=== PATIENT | male | born 1955 | race Caucasian/White ===

== ENCOUNTER → 2018-01-08 | Outpatient (CLI) | payer OTHER ==
--- NOTE | ~2018-01-08 | 2DMMODE ---
[facility] [place] [address] 2 D/M-MODE ECHOCARDIOGRAM Name: CLEMENT SPARROW Room #: REG [facility]#: [id number] Admission: 01/08/18 Attend Phys: Stoney Hendrix, Discharge: Date of : 57 Date of Service: 01/08/18 1709 Report #: [id number] THIS REPORT FOR: //name// ADDENDUM APPROVED REPORT Study performed: 01/08/2018 10:06:31 EXAM: Comprehensive 2D, Doppler, and color-flow Echocardiogram Patient Location: Out-Patient Room #: Echo lab 2 Status: routine BSA: 1.78 HR: 51 bpm BP: 122/78 mmHg Rhythm: NSR Other Information Study Quality: Good Indications Aortic Valve Disease Bicuspid Aortic valve. 2D Dimensions IVC: 24.00 mm Volumes Left Atrial Volume (Systole) LA ESV Index: 28.00 mL/m2 Tricuspid Valve PA Pressure: 35.00 mmHg Left Ventricle The left ventricle is normal size. There is normal LV segmental wall motion. There is normal left ventricular wall thickness. The left ventricular systolic function is normal. The left ventricular ejection fraction is within the normal range. LVEF is 55-60%. The left ventricular diastolic function is normal. Right Ventricle The right ventricle is normal size. The right ventricular systolic function is normal. [facility] [address] [place] [address] 2 D/M-MODE ECHOCARDIOGRAM Name: CLEMENT SPARROW Room #: REG [facility]#: [id number] Admission: 01/08/18 Attend Phys: Stoney Hendrix, Discharge: Date of : 57 Date of Service: 01/08/18 1709 Report #: [id number] The left atrium size is normal. The right atrium size is normal. Aortic Valve Aortic valve is bicuspid. Trace to mild aortic regurgitation. Moderate aortic stenosis. Mitral Valve The mitral valve is normal in structure. Trace to mild mitral regurgitation. No evidence of mitral valve stenosis. Tricuspid Valve The tricuspid valve is normal in structure. Trace tricuspid regurgitation. Estimated PAP 35 mmHg. Mild pulmonary hypertension. Pulmonic Valve The pulmonary valve is normal in structure. There is no pulmonic valvular regurgitation. Great Vessels The aortic root is normal in size. IVC is dilated and collapses >50% with inspiration. Pericardium There is no pericardial effusion. <Conclusion> The left ventricle is normal size. LVEF is 55-60%. The left ventricular diastolic function is normal. The right ventricle is normal size. The left atrium size is normal. Aortic valve is bicuspid. Trace to mild aortic regurgitation. Moderate aortic stenosis.1.0 cm 2 Trace to mild mitral regurgitation. Trace tricuspid regurgitation. Estimated PAP 35 mmHg. Mild pulmonary hypertension. The aortic root is normal in size. There is no pericardial effusion. <ELECTRONICALLY SIGNED> By: Stoney Hendrix MD, FACC 01/08/181708 08 08 Stoney Hendrix MD, FACC /INF
== END ==
LOC: CV 09:29
DX: I27.20 Pulmonary hypertension, unspecified (principal); I35.9 Nonrheumatic aortic valve disorder, unspecified

== ENCOUNTER → 2018-12-11 | Outpatient (CLI) | payer OTHER ==
--- NOTE | 2018-12-11 16:38 | 2DMMODE ---
[facility] [employer] [place] [place] [address] 2 D/M-MODE ECHOCARDIOGRAM Name: KYARACLEMENT JAMIA Room #: REG [facility]#: [id number] Admission: 12/11/18 Attend Phys: Stoney Hendrix, Discharge: Date of : 57 Report #: [id number] THIS REPORT FOR: //name// APPROVED REPORT Study performed: 12/11/2018 10:04:21 EXAM: Comprehensive 2D, Doppler, and color-flow Echocardiogram Patient Location: Out-Patient Status: routine BSA: 1.58 HR: 54 bpm BP: 122/76 mmHg Rhythm: Bradycardia Other Information Study Quality: Good Indications Aortic Valve Stenosis. Aortic Valve Disease. 2D Dimensions RVDd: 43.92 mm IVSd: 11.63 (7-11mm) LVOT Diam: 22.76 (18-24mm) LVDd: 48.07 mm PWd: 9.92 (7-11mm) Ascending Ao: 37.44 (22-36mm) LVDs: 28.84 (25-40mm) Aortic Root: 36.43 mm IVC: 23.00 mm Volumes Left Atrial Volume (Systole) Single Plane 4CH: 37.27 mL Single Plane 2CH: 52.24 mL LA ESV Index: 35.00 mL/m2 Aortic Valve AoV Peak Shon.: 3.57 m/s AO Peak Gr.: 50.98 mmHg LVOT Max P.41 mmHg AO Mean Gr.: 28.88 mmHg LVOT Mean P.86 mmHg AO V2 Mean: 2.61 m/s LVOT Max V: 0.59 m/s AO V2 VTI: 84.39 cm LVOT Mean V: 0.45 m/s RAMIN (VTI): 0.78 cm2 LVOT V1 VTI: 16.27 cm RAMIN Vmax: 0.68 cm2 AI Vmax: 4.09 m/s SV (LVOT): 66.17 mL AI [place]: 0.94 m/s2 [facility] [place] [address] [place] [address] 2 D/M-MODE ECHOCARDIOGRAM Name: CLEMENT SPARROW JAMIA [id number] Admission: 12/11/18 Attend Phys: Stoney Hendrix, Discharge: Date of : 57 Report #: [id number] AI PHT: 1258.81 ms Mitral Valve E/A Ratio: 1.0 MV Decel. Time: 219.50 ms MV E Max Shon.: 0.49 m/s MV A Shon.: 0.48 m/s MV PHT: 63.66 ms IVRT: 69.20 ms Pulmonary Valve PV Peak Shon.: 0.90 m/s PV Peak Gr.: 3.21 mmHg Pulmonary Vein P Vein S: 0.60 m/s P Vein A: 0.35 m/s P Vein D: 0.41 m/s P Vein A Dur.: 64.6 msec P Vein S/D Ratio: 1.46 Tricuspid Valve RAP Estimate: 10.00 mmHg Left Ventricle The left ventricle is normal size. There is normal left ventricular wall thickness. The left ventricular systolic function is normal. The left ventricular ejection fraction is within the normal range. LVEF is 55-60%. Moderate diastolic dysfunction is present (pseudonormal filling). Right Ventricle Right ventricle is at the upper limits of normal. The right ventricular systolic function is normal. [facility] The left atrium size is normal. The right atrium size is normal. Aortic Valve Aortic valve is possibly bicuspid. Aortic valve leaflets are moderately thickened. Aortic valve is calcified. Trace aortic regurgitation. There is moderate valvular aortic stenosis. Calculated aortic valve area is 0.8 cm2 with maximum pressure gradient of 51 mmHg and mean pressure gradient of 28 mmHg. Mitral Valve The mitral valve is normal in structure. Mild mitral regurgitation. No evidence [place] [address] 2 D/M-MODE ECHOCARDIOGRAM Name: CLEMENT SPARROW JAMIA Room #: REG [facility]#: [id number] Admission: 12/11/18 Attend Phys: Stoney Hendrix, Discharge: Date of : 57 Report #: [id number] Tricuspid Valve The tricuspid valve is normal in structure. Trace tricuspid regurgitation. Unable to assess PA pressure. Pulmonic Valve The pulmonary valve is normal in structure. Mild pulmonic regurgitation. Great Vessels The aortic root is normal in size. The ascending aorta is normal in size. IVC is dilated and collapses >50% with inspiration. Pericardium There is no pericardial effusion. <Conclusion> The left ventricle is normal size. The left ventricular systolic function is normal. The left ventricular ejection fraction is within the normal range. LVEF is 55-60%. Moderate diastolic dysfunction is present (pseudonormal filling). Right ventricle is at the upper limits of normal. The right ventricular systolic function is normal. The left atrium size is normal. Aortic valve is possibly bicuspid. Aortic valve leaflets are moderately thickened. Aortic valve is calcified. Trace aortic regurgitation. There is moderate valvular aortic stenosis. Calculated aortic valve area is 0.8 cm2 with maximum pressure gradient of 51 mmHg and mean pressure gradient of 28 mmHg. Trace tricuspid regurgitation. Unable to assess PA pressure. Mild pulmonic regurgitation. The ascending aorta is normal in size. There is no pericardial effusion. <ELECTRONICALLY SIGNED> By: Stoney Hendrix MD, FACC 12/11/18 1638 [id number] [id number] Stoney Hendrix MD, FACC /INF
== END ==
LOC: CV 09:54
DX: I08.8 Other rheumatic multiple valve diseases (principal)